=== PATIENT | male | born 1995 | race Caucasian/White ===

== ENCOUNTER 2017-05-10 03:46 | Emergency (ER) | payer OTHER ==
[~2017-05-10] VITALS: Ht 182.9 cm; Wt 103.1 kg
[2017-05-10 03:50] VITALS: TEMP 36.7; Ht 182.9 cm; Wt 103.1 kg
--- NOTE | 2017-05-10 04:46 | EMERGENCY ROOM VISIT NOTE ---
ED Visit Note First contact with patient: 03:57 CHIEF COMPLAINT: Ankle pain HISTORY OF PRESENT ILLNESS: This 21-year-old male patient presents to the emergency department ambulatory complaining of pain in the right ankle and heel. The patient states that 2 days ago, he was running and jumped off of something, landing onto the right heel. He reports that he has persistent pain in the right heel and ankle as well as bruising along the inside of the ankle. He rates his discomfort a 9/10. The patient is not able to bear weight on the foot. Constant pain, worse with movement, weight bearing, and the dependent position. No knee pain, the patient is able to move their toes. No numbness or weakness of the foot, no laceration. The patient has not had a previous fracture to this ankle. The patient has taken no medication for the pain. The patient denies any other injury. REVIEW OF SYSTEMS: A 6 system review of systems was completed with positives and pertinent negatives listed in the HPI. ALLERGIES: No known drug allergies MEDICATIONS: No chronic medications PMH: No significant past medical history. SOCIAL HISTORY: The patient lives locally. Nonsmoker. PHYSICAL EXAM: Vital Signs: Reviewed Nurse's notes, vital signs stable. GENERAL : This is a 21-year-old male, no acute distress, but appears in pain, well- developed, well-nourished. MENTAL STATUS: Alert, oriented to person place and time, and cooperative. MUSCULOSKELETAL: There is ecchymosis and edema over the medial aspect of the right ankle. There is tenderness to palpation along the medial aspect of the calcaneus and over the medial malleolus. No tenderness of the lateral ankle or foot. No tenderness of the calf or proximal tibia/fibula. There is no visual deformity. The foot and toes are warm and well-perfused. Dorsalis pedis pulse 2+. Sensation to pain and light touch is intact. Capillary refill less than 2 seconds. RADIOGRAPHIC FINDINGS: RIGHT ANKLE X-RAY: Small irregularity along the posterior aspect of the talus which appears to be old. No acute fractures of the tibia/fibula. RIGHT FOOT X-RAY: No acute fractures. EMERGENCY DEPARTMENT COURSE: I examined the patient. X-rays of the right ankle and foot were reviewed by myself and Dr. Woo and reveal no acute fractures or dislocations. Hoang wrap was applied to the ankle/foot under my direction and the position was satisfactory. Neurovascular status was rechecked and intact. The patient was instructed on the use of crutches. He requested something for pain and was given a short course of [place]. He was instructed to take ibuprofen and apply ice for swelling and pain. He was instructed to follow-up with his primary care provider or orthopedics for persistent symptoms. The patient was discharged home in good condition. Patient was reviewed in the [place] prescription drug monitoring program; no red flags were identified. Medication reconciliation: I attest that I have personally reviewed the patient 's current medication list. Blood pressure screening: Patient was found to have normal blood pressure on screening and does not require follow-up. DIAGNOSIS: Right foot injury Current/Historical Medications Scheduled PRN Hydrocodone/Acetaminophen 5MG/325MG ([place] 5MG/325MG), 1-2 TABLET PO Q4H PRN for Pain Allergies Coded Allergies: No Known Allergies (Unverified , 05/10/17) Vital Signs Date Time Temp Pulse Resp B/P (MAP) Pulse Ox O2 Delivery O2 Flow Rate FiO2 05/10/17 05:50 82 16 131/84 98 05/10/17 03:50 36.7 81 20 127/81 97 Room Air Departure Information Impression Primary Impression: Right foot injury Dispostion Home / Self-Care Condition GOOD Prescriptions Hydrocodone/Acetaminophen 5MG/325MG ([place] 5MG/325MG) Tab 1-2 TABLET PO Q4H Y for Pain, #10 TAB For Initial Treatment Prov: Tabby Fisher PA-C 05/10/17 Referrals No Doctor, Assigned (PCP) Rodger Dixon MD Patient Instructions My [facility] Additional Instructions You have been treated in the Emergency Department for an ankle/foot injury. You have been prescribed [place] to be used for pain control. This is a narcotic medication. You cannot drive or consume alcohol while on this medicine. This medicine should only be used for pain that cannot be controlled with over-the- counter pain medicines. For pain control, you can use the following [id number] medicines (if >12 yo): - Regular strength (325mg/tab) Tylenol (acetaminophen) 2 tabs every 4-6 hours as needed. Do not exceed 12 tablets in a 24 hour period. Avoid taking more than 4 grams (4000 mg) of Tylenol per day. This includes any other sources of acetaminophen you may take on a regular basis. - Regular strength (200 mg/tab) Advil (ibuprofen) 1-2 tabs every 4-6 hours as needed. Do not exceed a dose of 3200 mg per day. If this is a recent injury (<24 hrs), ice can be applied to the area of pain for the first 3 days to help decrease pain and inflammation. Use the crutches for the next 3-4 days, then as needed for difficulty walking for pain. Follow-up with orthopedics if there is persistent or worsening pain in 5-6 days. Return to the Emergency Department if your current symptoms worsen despite treatment course outlined above, or if you develop any of the following symptoms : intractable pain despite aforementioned treatment course or new onset of numbness or tingling of the foot. Problem Qualifiers Primary Impression: Right foot injury Encounter type: initial encounter Qualified Codes: S99.921A - Unspecified injury of right foot, initial encounter
[2017-05-10] MEDS ORDERED: HYDR-5688 PO (05:29)
[2017-05-10 05:50] VITALS: BP 131/84; PULSE 82; O2SAT 98
--- NOTE | 2017-05-10 06:51 | DIAGNOSTIC IMAGING REPORT ---
RIGHT FOOT MIN 3 VIEWS ROUTINE, RIGHT ANKLE MIN 3 VIEWS ROUTINE HISTORY:21 years[place]ight ankle/foot injury Right COMPARISON: None available TECHNIQUE: 3 views of the right foot and 3 views of the right ankle. FINDINGS: FOOT: There is an 8 x 3 mm bone fragment posterior to the posterior process of the talus with smaller bone fragment seen just superiorly is approximately 3 mm. Moderate-sized joint effusion is present in addition to moderate soft tissue swelling about the ankle and hindfoot. ANKLE: There is moderate soft tissue swelling about the ankle, greatest medially. Talar dome is smooth without osteochondral defect. Bone fragment is seen adjacent to the posterior process of the talus. IMPRESSION: 1. 8 x 3 mm bone fragment adjacent to the posterior process of the talus suggests acute avulsion fracture with associated joint effusion and moderate soft tissue swelling. 2. No additional acute fracture or dislocation identified involving the right foot or ankle. The above report was generated using voice recognition software. It may contain grammatical, syntax or spelling errors. Electronically signed by: Andrea Quiroz 05/10/2017 6:50 AM Dictated Date/Time: 05/10/2017 6:46 AM
== END 2017-05-10 05:51 | disposition home or self-care (01) ==
LOC: C.EDB 03:48
DX: S99.921A Unspecified injury of right foot, initial encounter (principal); W22.8XXA Striking against or struck by other objects, initial encounter